=== PATIENT | male | born 1940 | race Caucasian/White ===

== ENCOUNTER 2018-07-14 16:25 | Inpatient (IN) | payer MEDICARE, OTHER ==
[~2018-07-14] VITALS: Ht 185.4 cm; Wt 97.1 kg
[2018-07-14] MEDS ORDERED: SODIUM CHLORIDE 0.9% 1000ML 1,000 ML IV STA (16:50)
[2018-07-14] MEDS ORDERED: PIPER-TAZ 3.375 GM 50 ML IV ONE (16:50)
[2018-07-14] MEDS ORDERED: MEROPENEM 1GRAM 1 GM in SODIUM CHLORIDE 0.9% 100 ML 100 ML IV STA (17:07)
[2018-07-14] MEDS ORDERED: DIATRIZOATE MEGL/DIATRIZOA SOD 30 ML BTL PO ONE (17:08)
[2018-07-14] MEDS ORDERED: MEROPENEM 1GM 100 ML IV ONE (17:15)
[2018-07-14] MEDS ORDERED: ACETAMINOPHEN 325 MG TAB PO ONE (17:30)
[2018-07-14 17:32] LABS: BASOPHILS % 0.2 % (0.0-1.0); EOSINOPHILS # (AUTO) 0.3 (0.0-0.4); EOSINOPHILS % 1.8 % (0.0-6.0); HEMATOCRIT 40.7 % (38.2-49.6); HEMOGLOBIN 13.7 g/dL (14.0-18.0); LYMPHOCYTES # (AUTO) 0.7 (1.0-3.2); LYMPHOCYTES % 4.6 % (18.0-39.1); MEAN CORPUSCULAR HEMOGLOBIN 29.3 pg (28-32); MEAN CORPUSCULAR HGB CONC 33.7 g/dL (31-35); MONOCYTES # (AUTO) 0.9 (0.2-0.8); MONOCYTES % 5.6 % (4.4-11.3); NEUTROPHILS # (AUTO) 13.9 (2.1-6.9); NEUTROPHILS % 87.4 % (38.7-80.0); PLATELET COUNT 214 x10e3/uL (140-360); RED BLOOD COUNT 4.68 x10e6/uL (4.3-5.7); RED CELL DISTRIBUTION WIDTH 13.5 % (11.7-14.4)
[2018-07-14 17:34] LABS: BILIRUBIN,URINE NEGATIVE (NEGATIVE); CLARITY,URINE CLEAR (CLEAR); COLOR,URINE YELLOW (YELLOW); KETONES,URINE NEGATIVE (NEGATIVE); LEUKOCYTE ESTERASE ,URINE SMALL (NEGATIVE); NITRITE,URINE NEGATIVE (NEGATIVE); PROTEIN,URINE DIPSTICK NEGATIVE (NEGATIVE); URINE UROBILINOGEN 0.2 mg/dL (0.2 - 1)
[2018-07-14 17:50] LABS: BACTERIA,URINE MANY /HPF; EPITHELIAL CELLS,URINE MODERATE /LPF; WBC,URINE (MAN) 21-50 /HPF (0-5)
[2018-07-14 18:24] LABS: ALBUMIN 4.1 g/dL (3.5-5.0); ALBUMIN/GLOBULIN RATIO 1.4 (0.8-2.0); ANION GAP 13.2 mmol/L (8-16); CALCIUM 9.5 mg/dL (8.4-10.2); CREATININE, SERUM 1.44 mg/dL (0.72-1.25); MAGNESIUM 1.7 MG/DL (1.3-2.1); POTASSIUM 4.2 mmol/L (3.5-5.1)
[2018-07-14] MEDS ORDERED: SODIUM CHLORIDE 0.9% 50ML 50 ML ONE (20:23)
[2018-07-14] MEDS ORDERED: IOPAMIDOL 370 MG/ML 200 ML INFUS..BTL INJ ONE (20:24)
--- NOTE | 2018-07-14 21:05 | Diagnostic Imaging Report ---
EXAMINATION: CT of the abdomen and pelvis with contrast. TECHNIQUE: Spiral CT images of the abdomen and pelvis were performed from the lung bases to the lesser trochanters after the intravenous administration of 100 cc of Isovue 370. Coronal and sagittal reformatted images were obtained. COMPARISON: None. CLINICAL HISTORY:78-year-old male history of lower abdominal pain for 2 days DISCUSSION: ABDOMEN/PELVIS: LOWER THORAX:Unremarkable. HEPATOBILIARY: No focal hepatic lesions. Asymmetric, left intrahepatic ductal dilatation. Cholecystectomy. SPLEEN: No splenomegaly. PANCREAS: No focal masses or ductal dilatation. ADRENALS: No adrenal nodules. KIDNEYS/URETERS: No hydronephrosis nonobstructive 2-3 mm inferior left renal calculus. Renal cortical hypodensities on the left, too small characterize. PELVIC ORGANS/BLADDER: The bladder is normal. Prostatomegaly measuring up to 6.8 cm PERITONEUM/RETROPERITONEUM: No free air or fluid. LYMPH NODES: No intra-abdominal, retroperitoneal, pelvic or inguinal lymphadenopathy. VESSELS: The celiac trunk,superior and inferior mesenteric and bilateral renal arteries are patent The portal, superior mesenteric and splenic veins are patent. GI TRACT: No distention or wall thickening. BONES AND SOFT TISSUE: No bony destructive lesions. No soft tissue abnormalities. Partial right-sided sacralization of L5. IMPRESSION: Nonspecific intrahepatic biliary ductal prominence in the left hepatic lobe can be seen in the setting of prior cholecystectomy. Follow-up ultrasound may be considered. Nonobstructing 2-3 mm inferior left renal calculus. Prostatomegaly. Signed by: Twin Tineo MD on 07/14/2018 9:02 PM
[2018-07-14] MEDS ORDERED: ONDANSETRON HCL INJ 2MG/ML 2ML 2 MG/ML VIAL IV PRN (21:30)
--- OUTSIDE RECORDS SUMMARY | 2018-07-14 21:32 | XMS REPORT ---
Author Author [facility] Address Unknown Phone Unavailable Care Team Providers Care Wood Milling Machine Tender Name Role Phone James VIVEROS Unavailable Unavailable Problems This patient has no known problems. Allergies, Adverse Reactions, Alerts This patient has no known allergies or adverse reactions. Medications This patient has no known medications. Results Test Description Test Time Test Comments Text Results Atomic Results Result Comments CT ABDOMEN/PELVIS W 2018-07-14 20:54:00 [place] [id number] Patient Name: FARNAZ KONG MR #: [id number] : 1940 Age/Sex: 78/M Req #: [id number] Adm Physician: Ordered by: MICHAEL TONG SUPERVISOR SEWER SYSTEM Report #: [id number] Location: ER Room/Bed: Procedure: [id number] CT/CT ABDOMEN/PELVIS W Exam Date: 07/14/18 Exam Time: 1908 REPORT STATUS: Signed EXAMINATION: CT of the abdomen and pelvis with contra st. TECHNIQUE: Spiral CT images of the abdomen and pelvis were performed from the lung bases to the lesser trochanters after the intravenous administration of 100 cc of Isovue 370. Coronal and sagittal reformatted images were obtained. COMPARISON: None. CLINICAL HISTORY:78-year-old male history of lower abdominal pain for 2 days DISCUSSION: ABDOMEN/PELVIS: LOWER THORAX:Unremarkable. HEPATOBILIARY: No focal hepatic lesions. Asymmetric, left intrahepatic ductal dilatation. Cholecystectomy. SPLEEN: No splenomegaly. PANCREAS: No focal masses or ductal dilatation. ADRENALS: No adrenal nodules. KIDNEYS/URETERS: No hydronephrosis nonobstructive 2-3 mm inferior left renal calculus. Renal cortical hypodensities on the left, too small characterize. PELVIC ORGANS/BLADDER: The bladder is normal. Prostatomegaly measuring up to 6.8 cm PERITONEUM/RETROPERITONEUM: No free air or fluid. LYMPH NODES: No intra-abdominal, retroperitoneal, pelvic or inguinal lymphadenopathy. VESSELS: The celiac trunk,superior and inferior mesenteric and bilateral renal arteries are patent The portal, superior mesenteric and splenic veins are patent. GI TRACT: No distention or wall thickening. BONES AND SOFT TISSUE: No bony destructive lesions. No soft tissue abnormalities. Partial right-sided sacralization of L5. IMPRESSION: Nonspecific intrahepatic biliary ductal prominence in the left hepatic lobe can be seen in the setting of prior cholecystectomy. Follow-up ultrasound may be considered. Nonobstructing 2-3 mm inferior left renal calculus. Prostatomegaly. Signed by: Twin Tineo MD on 07/14/2018 9:02 PM Dictated By: KYLEIGH TINEO MD 01 Transcribed By: DOUGLAS on 07/14/182101 COPY TO: MICHAEL TONG NP
[2018-07-14] MEDS ORDERED: MEROPENEM 500MG/ NS 50ML 50 ML IV SCH (22:00)
[2018-07-14] MEDS ORDERED: MEROPENEM 500MG 500 MG in SODIUM CHLORIDE 0.9% 50ML 50 ML IV SCH (22:00)
[2018-07-14] MEDS: SODIUM CHLORIDE 0.9% 1000ML 1,000 ML IV SCH (22:00)
[2018-07-15] VITALS (9 sets, daily range): BP systolic 104–170; BP diastolic 51–70
--- NOTE | 2018-07-15 | NUR ---
Patient received via stretcher from ER . Patient is AAO x 4. Admission history obtained. Initial Physical assessment performed. Patient had no complaints of pain. No signs of respiratory distress. IVF infusing at 125 cc/hr. Patient oriented to room, call light and plan of care. Fall precautions implemented. Patient instructed to call for assistance when needed. Call light within reach.
[2018-07-15] MEDS: MEROPENEM 500MG/ NS 50ML 50 ML IV SCH ×3 (02:00→17:30)
[2018-07-15 05:06] LABS: BASOPHILS % 0.2 % (0.0-1.0); EOSINOPHILS # (AUTO) 0.1 (0.0-0.4); EOSINOPHILS % 0.2 % (0.0-6.0); HEMATOCRIT 36.4 % (38.2-49.6); HEMOGLOBIN 12.3 g/dL (14.0-18.0); LYMPHOCYTES # (AUTO) 1.2 (1.0-3.2); LYMPHOCYTES % 5.7 % (18.0-39.1); MEAN CORPUSCULAR HEMOGLOBIN 28.9 pg (28-32); MEAN CORPUSCULAR HGB CONC 33.8 g/dL (31-35); MEAN CORPUSCULAR VOLUME 85.4 fL (81-99); MONOCYTES # (AUTO) 1.6 (0.2-0.8); MONOCYTES % 7.5 % (4.4-11.3); NEUTROPHILS # (AUTO) 18.6 (2.1-6.9); NEUTROPHILS % 85.7 % (38.7-80.0); PLATELET COUNT 187 x10e3/uL (140-360); RED BLOOD COUNT 4.26 x10e6/uL (4.3-5.7); RED CELL DISTRIBUTION WIDTH 13.4 % (11.7-14.4)
[2018-07-15] MEDS: SODIUM CHLORIDE 0.9% 1000ML 1,000 ML IV SCH ×2 (05:18→12:19)
--- NOTE | 2018-07-15 05:31 | NUR ---
Dr. Cory Almeida notified of "Stat Consult: Reason: UTI.
[2018-07-15 05:33] LABS: ALBUMIN 3.4 g/dL (3.5-5.0); ALBUMIN/GLOBULIN RATIO 1.2 (0.8-2.0); CALCIUM 8.8 mg/dL (8.4-10.2); CREATININE, SERUM 1.23 mg/dL (0.72-1.25)
[2018-07-15] MEDS ORDERED: HYDRALAZINE HCL 20 MG/ML VIAL IV PRN (06:00)
--- NOTE | 2018-07-15 06:06 | NUR ---
Post Void Residual checked and recorded as 11cc using Bladder Scan .
--- NOTE | 2018-07-15 07:00 | NUR ---
BEDSIDE SHIFT REPORT RECEIVED FROM CONVEYOR SYSTEM DISPATCHER RN. PT DENIES NEEDS AT THIS TIME
--- NOTE | 2018-07-15 07:16 | NUR ---
Patient resting comfortably. Shift report given to oncoming nurse
[2018-07-15] MEDS ORDERED: AVODART0.5 MG PO (07:39)
[2018-07-15] MEDS ORDERED: METOPROLOL SUCC25 MG PO (07:39)
[2018-07-15] MEDS ORDERED: AMLODIPINE-BEN1 EAC5 PO (07:39)
[2018-07-15] MEDS ORDERED: VITAMIN D3400 UNIT PO (07:39)
[2018-07-15] MEDS ORDERED: ASPIRIN81 MG PO (07:39)
[2018-07-15] MEDS ORDERED: CO Q-1050 MG (07:39)
[2018-07-15] MEDS ORDERED: FLOMAX0.4 MG PO (07:39)
[2018-07-15] MEDS ORDERED: ATORVASTATIN CA10 MG PO (07:39)
[2018-07-15] MEDS ORDERED: MICROZIDE12.5 MG PO (07:39)
[2018-07-15] MEDS: FAMOTIDINE 20 MG TAB PO SCH ×3 (07:47→16:59)
--- NOTE | 2018-07-15 08:40 | NUR ---
PER THE PT, HE STOPPED FLOMAX SEVERAL YEARS BEFORE. MED RECON UPDATED.
[2018-07-15] MEDS ORDERED: TAMSULOSIN HCL 0.4 MG CAP PO SCH (09:00)
[2018-07-15] MEDS ORDERED: NON-FORMULARY MEDICATION (Hydrochlorothiazide (Microzide) 12.5 MG) PO SCH (09:00)
[2018-07-15] MEDS ORDERED: BENAZEPRIL PO SCH (09:00)
[2018-07-15] MEDS ORDERED: AMLODIPINE PO SCH (09:00)
[2018-07-15] MEDS: BENAZEPRIL HCL 10 MG TAB PO SCH (09:18)
[2018-07-15] MEDS: HYDROCHLOROTHIAZIDE 25 MG TAB PO SCH (09:18)
[2018-07-15] MEDS: AMLODIPINE BESYLATE 10 MG TAB PO SCH (09:19)
[2018-07-15] MEDS: ACETAMINOPHEN 325 MG TAB PO PRN ×2 (11:34→20:47)
--- NOTE | 2018-07-15 11:34 | NUR ---
PT TEMP 101.9. ADMINISTERED TYLENOL
--- NOTE | 2018-07-15 12:04 | NUR ---
PT TEMP RECHECKED. 99.1 NOTED.
--- NOTE | 2018-07-15 13:42 | Consultation ---
DATE OF CONSULTATION: 07/15/2018 Urology Consultation ADDITIONAL REFERRING PHYSICIAN: Sudeep Calderon MD CHIEF COMPLAINT AND REASON FOR CONSULTATION: Urinary tract infection and kidney stone. HISTORY OF PRESENT ILLNESS: Reymundo Clinton is a 78-year-old male patient of mine, whom I sent to the emergency room for fevers of 102 degrees. The patient reports chills, dysuria, frequency, urgency, occasional feeling of incomplete emptying. PAST MEDICAL HISTORY: Notable for hypertension, coronary artery disease, hypercholesterolemia, BPH, PTCA, and status post stent. MEDICATIONS: Please see MAR. ALLERGIES: NKDA. SOCIAL HISTORY: Denied smoking or drinking. FAMILY HISTORY: Denied urologic stones or malignancies. REVIEW OF SYSTEMS: Noncontributory other than problems mentioned above for 12 organ systems. PHYSICAL EXAMINATION: GENERAL: Elderly male, in no acute distress. VITAL SIGNS: Temperature 99.7, pulse 81, respirations 20, and blood pressure 124/70. EYES: Sclerae anicteric. NECK: Supple. BACK: Without costovertebral angle tenderness bilaterally. ABDOMEN: Soft, nontender, and nondistended. No palpable mass. No palpable hernias. No palpable adenopathy. : Normal male external genitalia. EXTREMITIES: No edema. NEURO: Moves all four extremities to command. PSYCH: Alert. Mood appropriate. SKIN: Intact. Normal color. PERTINENT LABORATORY DATA: Sodium 135, potassium 4.0, chloride 103, bicarb 26, BUN 23, creatinine 1.23. On admission, creatinine was 1.44. Glucose 116. Hemoglobin 12, hematocrit 36, platelet count 187,000, and white blood cell count 21,700. CT scan revealing a 6.8 cm BPH, a 3 mm left lower pole kidney stone. Urinalysis; 21 to 50 whites, 0 reds. IMPRESSION: 1. Kidney stone. 2. Urinary tract infection. 3. Benign prostatic hypertrophy. 4. Anemia. 5. Acute renal failure (resolving) closed. PLAN: The patient is voiding well. His postvoid residual was only 60 mL. We will continue the tamsulosin. For the small 3 mm stone, we would employ a trial of passage. The patient has been on broad-spectrum antibiotics. We will adjust to culture specific antibiotics once the data is available. The patient's anemia, we will defer to the primary service. Thank you for allowing me to participate in the care of your patient. We will be happy to follow along with you. MD SIERRA Garza/YONI /[id number]
--- NOTE | 2018-07-15 19:00 | NUR ---
BEDSIDE SHIFT REPORT GIVEN TO DONOR TECHNICIAN RN. PT DENIED FURTHER NEEDS.
--- NOTE | 2018-07-15 19:12 | NUR ---
Patient received lying in bed. No acute distress noted. Fall precautions implemented. Call light within reach.
[2018-07-15] MEDS: DUTASTERIDE 0.5 MG CAP PO SCH (20:48)
[2018-07-15] MEDS: ATORVASTATIN 10 MG TAB PO SCH (20:48)
[2018-07-15] MEDS: METOPROLOL SUCCINATE 25 MG TAB XL PO SCH (20:50)
[2018-07-16] VITALS (11 sets, daily range): BP systolic 126–170; BP diastolic 56–72
--- NOTE | 2018-07-16 00:25 | NUR ---
Patient's IV on right arm infiltrated. Old IV removed with tip intact. New IV inserted in left forearm 20G. Patient tolerated well.
[2018-07-16] MEDS: MEROPENEM 500MG/ NS 50ML 50 ML IV SCH ×3 (02:00→18:30)
[2018-07-16] MEDS: SODIUM CHLORIDE 0.9% 1000ML 1,000 ML IV SCH ×4 (02:03→21:18)
[2018-07-16 05:25] LABS: BASOPHILS % 0.2 % (0.0-1.0); EOSINOPHILS # (AUTO) 0.2 (0.0-0.4); EOSINOPHILS % 0.8 % (0.0-6.0); HEMATOCRIT 38.4 % (38.2-49.6); HEMOGLOBIN 12.5 g/dL (14.0-18.0); LYMPHOCYTES # (AUTO) 1.3 (1.0-3.2); LYMPHOCYTES % 6.5 % (18.0-39.1); MEAN CORPUSCULAR HEMOGLOBIN 29.3 pg (28-32); MEAN CORPUSCULAR HGB CONC 32.6 g/dL (31-35); MEAN CORPUSCULAR VOLUME 89.9 fL (81-99); MONOCYTES # (AUTO) 1.1 (0.2-0.8); MONOCYTES % 5.8 % (4.4-11.3); NEUTROPHILS # (AUTO) 16.9 (2.1-6.9); NEUTROPHILS % 85.6 % (38.7-80.0); PLATELET COUNT 146 x10e3/uL (140-360); RED BLOOD COUNT 4.27 x10e6/uL (4.3-5.7); RED CELL DISTRIBUTION WIDTH 13.7 % (11.7-14.4)
[2018-07-16 05:46] LABS: ANION GAP 12.1 mmol/L (8-16); CALCIUM 9.1 mg/dL (8.4-10.2); CREATININE, SERUM 1.34 mg/dL (0.72-1.25); MAGNESIUM 1.5 MG/DL (1.3-2.1); POTASSIUM 4.1 mmol/L (3.5-5.1)
--- NOTE | 2018-07-16 06:42 | NUR ---
Shift report given to oncoming nurse for continuity of care.
[2018-07-16] MEDS: BENAZEPRIL HCL 10 MG TAB PO SCH (08:20)
[2018-07-16] MEDS: HYDROCHLOROTHIAZIDE 25 MG TAB PO SCH (08:20)
[2018-07-16] MEDS: AMLODIPINE BESYLATE 10 MG TAB PO SCH (08:21)
[2018-07-16] MEDS: FAMOTIDINE 20 MG TAB PO SCH ×2 (08:50→16:14)
[2018-07-16] MEDS: ACETAMINOPHEN 325 MG TAB PO PRN ×2 (08:59→16:14)
--- NOTE | 2018-07-16 11:00 | NUR ---
PT VOICED CONCERN OF REDNESS AND SWELLING ON LEFT HAND. INFORMED PT CONCERN TO BALWINDER BEGUM.
--- NOTE | 2018-07-16 13:00 | NUR ---
LEFT HAND ELEVATED ABOVE HEART LEVEL WITH PILLOWS AND WARM PACK APPLIED PER BALWINDER BEGUM.
--- NOTE | 2018-07-16 13:25 | NUR ---
EDUCATED ABOUT IMM, SIGNED, FILED IN CHART, WITH COPY LEFT WITH FAMILY AT BEDSIDE.
--- NOTE | 2018-07-16 14:00 | NUR ---
BALWINDER BEGUM AT BEDSIDE TO SEE THE PT.
[2018-07-16] MEDS ORDERED: ONDANSETRON HCL 4 MG ORAL DISINTEGRATING TAB PO PRN (14:45)
--- NOTE | 2018-07-16 19:00 | NUR ---
BEDSIDE SHIFT REPORT GIVEN TO THE NUCLEAR CONTROL OPERATOR RN.
--- NOTE | 2018-07-16 19:14 | NUR ---
Patient received lying in bed. Family at bedside. AAO x 4. Left arm erythematous and edematous. Left arm elevated on pillow. Will continue to monitor.
[2018-07-16] MEDS: METOPROLOL SUCCINATE 25 MG TAB XL PO SCH (20:55)
[2018-07-16] MEDS: ATORVASTATIN 10 MG TAB PO SCH (20:55)
[2018-07-16] MEDS: DUTASTERIDE 0.5 MG CAP PO SCH (20:55)
[2018-07-17] MEDS: ACETAMINOPHEN 325 MG TAB PO PRN (00:21)
--- NOTE | 2018-07-17 00:25 | NUR ---
Patient's temperature elevated--100.3 F. Tylenol 650 mg administered.
[2018-07-17] MEDS: MEROPENEM 500MG/ NS 50ML 50 ML IV SCH ×3 (02:00→17:11)
[2018-07-17 04:08] VITALS: BP 136/61
[2018-07-17] MEDS: SODIUM CHLORIDE 0.9% 1000ML 1,000 ML IV SCH ×2 (05:18→13:10)
--- NOTE | 2018-07-17 06:45 | NUR ---
Walking rounds done. Shift report given to oncoming nurse.
--- NOTE | 2018-07-17 07:11 | NUR ---
PT ALERT RESP EVEN AND UNLABORED AT THIS TIME, ABLE TO MAKE NEEDS KNOWN, CALL LIGHT IN REACH.
[2018-07-17 07:40] VITALS: BP 136/65
[2018-07-17] MEDS: FAMOTIDINE 20 MG TAB PO SCH ×2 (08:59→17:11)
[2018-07-17] MEDS: HYDROCHLOROTHIAZIDE 25 MG TAB PO SCH (08:59)
[2018-07-17] MEDS: BENAZEPRIL HCL 10 MG TAB PO SCH (08:59)
[2018-07-17] MEDS: AMLODIPINE BESYLATE 10 MG TAB PO SCH (08:59)
[2018-07-17 11:37] VITALS: BP 147/70
[2018-07-17 16:01] VITALS: BP 143/63
--- NOTE | 2018-07-17 19:00 | NUR ---
Received patient from day nurse, patient alert and oriented x3. patient made aware of the plan of care for the night, patient verbalized understanding. patient is currently stable will continue to monitor.
--- NOTE | 2018-07-17 19:22 | NUR ---
report given to to oncoming nurse, for continued care.
[2018-07-17 20:00] VITALS: BP 142/67
[2018-07-17] MEDS: CEFTRIAXONE SOD 1 GM/NS 50 ML 50 ML IV SCH (20:40)
[2018-07-17] MEDS: DUTASTERIDE 0.5 MG CAP PO SCH (20:40)
[2018-07-17] MEDS: ATORVASTATIN 10 MG TAB PO SCH (20:40)
[2018-07-17] MEDS: METOPROLOL SUCCINATE 25 MG TAB XL PO SCH (20:46)
[2018-07-18] VITALS (7 sets, daily range): BP systolic 120–144; BP diastolic 59–84
[2018-07-18] MEDS: SODIUM CHLORIDE 0.9% 1000ML 1,000 ML IV SCH ×3 (03:30→13:46)
[2018-07-18 05:00] LABS: BASOPHILS % 0.4 % (0.0-1.0); EOSINOPHILS # (AUTO) 0.3 (0.0-0.4); EOSINOPHILS % 4.1 % (0.0-6.0); HEMATOCRIT 34.5 % (38.2-49.6); HEMOGLOBIN 11.7 g/dL (14.0-18.0); LYMPHOCYTES # (AUTO) 1.1 (1.0-3.2); LYMPHOCYTES % 15.6 % (18.0-39.1); MEAN CORPUSCULAR HEMOGLOBIN 29.1 pg (28-32); MEAN CORPUSCULAR HGB CONC 33.9 g/dL (31-35); MEAN CORPUSCULAR VOLUME 85.8 fL (81-99); MONOCYTES # (AUTO) 0.8 (0.2-0.8); NEUTROPHILS # (AUTO) 4.7 (2.1-6.9); NEUTROPHILS % 67.3 % (38.7-80.0); PLATELET COUNT 182 x10e3/uL (140-360); RED BLOOD COUNT 4.02 x10e6/uL (4.3-5.7); RED CELL DISTRIBUTION WIDTH 13.2 % (11.7-14.4)
[2018-07-18 05:41] LABS: ANION GAP 11.9 mmol/L (8-16); BLOOD UREA NITROGEN 14 mg/dL (7-26); BUN/CREATININE RATIO 13 (6-25); CALCIUM 9.1 mg/dL (8.4-10.2); CARBON DIOXIDE 24 mmol/L (22-29); CHLORIDE 104 mmol/L (98-107); CREATININE, SERUM 1.07 mg/dL (0.72-1.25); EST GLOMERULAR FILTRATION RATE > 60 ML/MIN (60-); GLUCOSE 111 mg/dL (74-118); MAGNESIUM 1.6 MG/DL (1.3-2.1); PHOSPHORUS 2.6 MG/DL (2.3-4.7); POTASSIUM 3.9 mmol/L (3.5-5.1); SODIUM 136 mmol/L (136-145)
[2018-07-18] MEDS: BENAZEPRIL HCL 10 MG TAB PO SCH (09:14)
[2018-07-18] MEDS: AMLODIPINE BESYLATE 10 MG TAB PO SCH (09:14)
[2018-07-18] MEDS: HYDROCHLOROTHIAZIDE 25 MG TAB PO SCH (09:14)
[2018-07-18] MEDS: FAMOTIDINE 20 MG TAB PO SCH ×2 (09:14→17:03)
--- NOTE | 2018-07-18 11:49 | NUR ---
IMM letter delivered and explained to pt. He verbalized understanding. Signed copy placed in chart. Copy to pt's transition of care folder.
[2018-07-18] MEDS ORDERED: MAGNESIUM SULFATE 2GM/50ML 50 ML IV ONE (16:30)
[2018-07-18] MEDS ORDERED: CEFUROXIME250 MG PO ×2 (18:57→18:59)
--- NOTE | 2018-07-18 19:00 | NUR ---
Received patient from day nurse, patient is stable, due for discharge.
[2018-07-18] MEDS: CEFTRIAXONE SOD 1 GM/NS 50 ML 50 ML IV SCH (19:32)
--- NOTE | 2018-07-18 20:59 | NUR ---
PATIENT DISCHARGED AND LEFT UNIT IN THE COMAPNY OF STAFF MEMBERS. DISCHARGE EDUCATION, FOLLOW UP APPOINTMENT DISCHARGED WITH PATIENT AND PATIENT VERBALIZED UNDERSTANDING.
--- NOTE | 2018-07-19 06:15 | Discharge Summary ---
HISTORY OF PRESENT ILLNESS: Mr. Clinton is a 78-year-old male, who admitted with complaints of fever of 102.4 on July 14 with urinary frequency. He denied dysuria and hematuria at that time. PAST MEDICAL HISTORY: Significant for BPH, hypertension, coronary artery disease, and hyperlipidemia. PAST SURGICAL HISTORY: Significant for coronary stents and cholecystectomy. FAMILY HISTORY: Sister with diabetes. Another sister, cancer and a brother with CVA. SOCIAL HISTORY: Noncontributory. ALLERGIES: NO KNOWN ALLERGIES. ADMITTING DIAGNOSES: Include: 1. Urinary tract infection with sepsis, present on arrival. 2. BPH. 3. Hypertension. 4. Hyperlipidemia. 5. Acute kidney injury. DISCHARGE DIAGNOSES: Include: 1. Kidney stone, 3 mm stone. 2. Acute Escherichia coli urinary tract infection, multidrug resistant organism, present on arrival. 3. Sepsis due to aforementioned urinary tract infection. 4. BPH. 5. Controlled hypertension. 6. Hyperlipidemia. 7. Left arm swelling due to infiltrated IV. 8. Hypomagnesemia. 9. BPH with a size of 6.8 cm. HOSPITAL COURSE: On admission WBCs 15.85, hemoglobin 13.7, hematocrit 40.7, platelets 214. Sodium 138, potassium 4.2, BUN 30, creatinine 1.44, GFR 48, calcium 9.5, magnesium 1.7. LFTs were within normal limits and lipase was 90. Abdomen and pelvis CT showed nonspecific intrahepatic biliary ductal prominence in the left hepatic lobe can be seen in setting of prior cholecystectomy. Venous Doppler ultrasound of the left upper extremity done on July 16 for arm swelling was negative for DVT. Laboratory data today on the day of discharge, sodium 136, potassium 3.9, chloride 104, CO2 is 24, BUN 14, creatinine 1.07, GFR greater than 60. WBCs 6.99, hemoglobin 11.7, hematocrit 34.5, platelets 182. Calcium 9.1, phosphorus 2.6, magnesium 1.6. Final urine culture results showed Escherichia coli resistant to Bactrim, ampicillin, and Unasyn. During his stay, the patient was treated with normal saline at 125 mL an hour. For most of the stay, he was on Merrem IV, which was subsequently changed to Rocephin IV given his sensitivities. Regarding the kidney stone, Dr. Nasim Almeida was consulted with Neurology and suggested a trial of passage. Over time, the dysuria improved. He still has a urinary frequency, has still been getting IV fluids with improved renal function. Hypertension was well controlled. He had left arm swelling noted on July 16. A venous Doppler ultrasound negative for DVT most likely and we treated this and his left arm was elevated and subsequently improved. His magnesium was low. After his renal function improved, he received 2 g of magnesium sulfate on the day of discharge and prior to leaving. Today, he has no new complaints. He has been ambulating in the halls. He has no chills. He has been eating well. His is at the bedside and questions have been answered. This morning, his temperature was 100.1, more recent temperature 97.1, heart rate 59, blood pressure 139/64, respirations 20, oxygen saturation 95%. Just prior to discharge, his normal saline was infusing at 100 mL an hour. This along with his peripheral IV will be discontinued at time of discharge and he will go home with suggestions of a cardiac diet. Activity level as tolerated. Continue his home medications and a prescription for cefuroxime 500 mg p.o. q.12 hours for seven days. The patient is to follow up with his PCP, Dr. Cricket Aguero in 1 to 2 weeks. Follow up with Dr. Almeida as directed. Dictated by Yariel Morrell NP Sudeep Calderon MD HWP/MODL /[id number]
== END 2018-07-18 20:50 | disposition home or self-care (01) | DRG 872 ==
LOC: ER 16:25 → ERHOLD 21:30 → MED/SURG2 07-15 00:09
PROVIDERS: ADMIT Internal Medicine; ATTEND Internal Medicine
DX: A41.51 Sepsis due to Escherichia coli [E. coli] (principal); N17.9 Acute kidney failure, unspecified; R35.0 Frequency of micturition; N40.1 Benign prostatic hyperplasia with lower urinary tract symptoms; I10 Essential (primary) hypertension; N20.0 Calculus of kidney; E78.5 Hyperlipidemia, unspecified; E83.42 Hypomagnesemia; B96.20 Unspecified Escherichia coli [E. coli] as the cause of diseases classified elsewhere; Z16.24 Resistance to multiple antibiotics; M79.89 Other specified soft tissue disorders; T80.89XA Other complications following infusion, transfusion and therapeutic injection, initial encounter; I25.10 Atherosclerotic heart disease of native coronary artery without angina pectoris
CPT/HCPCS: 36415; 74177; 80048; 80053; 81001; 82150; 83605; 83690; 83735; 84100; 85025; 87040; 87086; 87186; 93971; 99284; J0360; J0696; J3475; J7030; Q9967